=== PATIENT | male | born 1990 | race Caucasian/White ===

== ENCOUNTER 2019-10-25 19:14 | Emergency (ER) | payer MEDICAID ==
[~2019-10-25] VITALS: Ht 175.3 cm; Wt 77.2 kg
[2019-10-25 19:34] VITALS: Ht 175.3 cm; Wt 77.2 kg
[2019-10-25 20:14] VITALS: BP 138/86
== END 2019-10-25 20:14 | disposition home or self-care (01) ==
LOC: ED 19:14
DX: R10.13 Epigastric pain (principal); R07.89 Other chest pain

== ENCOUNTER 2019-12-30 21:20 | Emergency (ER) | payer MEDICAID ==
[~2019-12-30] VITALS: Ht 180.3 cm; Wt 74.9 kg
[2019-12-30 22:18] VITALS: BP 134/88
== END 2019-12-30 22:18 | disposition home or self-care (01) ==
LOC: ED 21:20
DX: K21.9 Gastro-esophageal reflux disease without esophagitis (principal)